=== PATIENT | male | born 1980 | race Caucasian/White ===

== ENCOUNTER 2016-08-17 22:03 | Emergency (ER) | payer OTHER ==
[2016-08-17 22:10] VITALS: BP 119/73
== END 2016-08-17 23:55 | disposition left against medical advice (07) ==
LOC: ED 22:03
DX: L02.413 Cutaneous abscess of right upper limb (principal); Z53.21 Procedure and treatment not carried out due to patient leaving prior to being seen by health care provider; Z88.5 Allergy status to narcotic agent
CPT/HCPCS: 99281

== ENCOUNTER 2023-04-03 20:00 | Inpatient (IN) ==
[2023-04-03] MEDS ORDERED: Vancomycin 1,250 MG in NS 0.9% 250 ml 250 ML IVPB ONE (20:11)
[2023-04-03] MEDS ORDERED: Cefepime 2 GM in Dextrose 2 GM/50 ML BAG IV ONE (20:11)
[2023-04-03] MEDS ORDERED: Lactated Ringers 1000 ml BAG 1,000 ML IV ONE (20:59)
[2023-04-03] MEDS ORDERED: Acetaminophen IV 1 GM/100ML 1,000 MG/100 ML BAG IV ONE (20:59)
[2023-04-03 21:46] LABS: ABS Basophils 0.1 10^3/uL (0.0-0.1); ABS Monocytes 0.8 10^3/uL (0.0-1.1); ABS Neutrophils 10.2 10^3/uL (1.5-7.6); Eosinophil % 0.3 %; Hematocrit 36.2 % (38-53); Hemoglobin 12.5 g/dL (13.2-16.3); Lymphocyte % 8.1 %; Mean Corpuscular Hemoglobin 32.6 pg (27-33); Mean Corpuscular Hgb Conc 34.5 g/dL (31-36); Mean Corpuscular Volume 94.5 fL (80-97); Mean Platelet Volume 8.5 fL (7.5-11.2); Platelet Count 182 10^3/uL (150-450); Red Blood Count 3.83 10^6/uL (4.06-5.63); Red Cell Distribution Width 13.3 % (12-17); White Blood Count 12.1 10^3/uL (3.6-10.2)
[2023-04-03 21:54] LABS: Albumin 4.4 g/dL (3.2-5.2); Calcium 9.1 mg/dL (8.6-10.3); Potassium 3.7 mmol/L (3.5-5.0); Total Bilirubin 0.5 mg/dL (0.2-1.0)
[2023-04-03 22:00] LABS: Albumin/Globulin Ratio 1.6 (1-3); C Reactive Protein 106.67 mg/L (<8.01); Creatinine, Serum 0.79 mg/dL (0.67-1.17); Globulin 2.8 g/dL (2-4); Total Protein 7.2 g/dL (6.4-8.9); eGFR CKD-EPI 115.2 (>60)
[2023-04-03 22:08] LABS: Urine Appearance Clear; Urine Bilirubin Negative (Negative); Urine Blood Negative (Negative); Urine Color Yellow; Urine Glucose Negative (Negative); Urine Ketones Negative (Negative); Urine Nitrite Negative (Negative); Urine Protein 2+(100 mg/dL) (Negative); Urine Specific Gravity 1.024 (1.002-1.030); Urine Urobilinogen Negative (Negative)
[2023-04-03] MEDS ORDERED: Iohexol 350 (CONTRAST) 500 ML MDV IV ONE (22:16)
[2023-04-03 22:42] LABS: Urine Bacteria Absent (Absent); Urine Red Blood Cell Trace(0-2/hpf) (Absent); Urine White Blood Cell Absent (Absent)
[2023-04-03] MEDS ORDERED: Morphine 2 MG/ML SYRINGE IV PRN ×2 (23:30→23:46)
[2023-04-03] MEDS ORDERED: Acetaminophen IV 1 GM/100ML 1,000 MG/100 ML BAG IV PRN (23:31)
[2023-04-03] MEDS ORDERED: Vancomycin per Pharmacy 1 EA NOTE FOLLOW UP SCH (23:45)
[2023-04-03] MEDS ORDERED: Zosyn per Pharmacy NOTE FOLLOW UP SCH (23:45)
[2023-04-04] MEDS ORDERED: ZOSYN 3.375 GM x ONE DOSE over 30 miuntes IV (00:15)
[2023-04-04] MEDS: Enoxaparin 40 MG/0.4 ML SYR SUBCUT SCH ×2 (03:44→20:26)
[2023-04-04] MEDS ORDERED: Lactated Ringers 1000 ml BAG 1,000 ML IV SCH (06:00)
[2023-04-04] MEDS: ZOSYN 3.375 GM Q8H per EXTENDED INFUSION IV SCH ×2 (06:14→18:38)
[2023-04-04 06:29] LABS: ABS Eosinophils 0.1 10^3/uL (0.0-0.5); ABS Lymphocytes 1.2 10^3/uL (1.0-4.8); ABS Monocytes 0.8 10^3/uL (0.0-1.1); ABS Nucleated RBC 0.01 10^3/ul; Eosinophil % 1.3 %; Hematocrit 32.6 % (38-53); Hemoglobin 11.3 g/dL (13.2-16.3); Lymphocyte % 12.8 %; Mean Corpuscular Hemoglobin 32.6 pg (27-33); Mean Corpuscular Hgb Conc 34.5 g/dL (31-36); Mean Corpuscular Volume 94.4 fL (80-97); Mean Platelet Volume 8.6 fL (7.5-11.2); Nucleated Red Blood Cells % 0.2 /100 WBC (0.0-0.4); Platelet Count 142 10^3/uL (150-450); Red Blood Count 3.45 10^6/uL (4.06-5.63); Red Cell Distribution Width 12.8 % (12-17); White Blood Count 9.2 10^3/uL (3.6-10.2)
[2023-04-04 06:49] LABS: Calcium 8.5 mg/dL (8.6-10.3); Creatinine, Serum 0.66 mg/dL (0.67-1.17); Magnesium 2.1 mg/dL (1.9-2.7); Potassium 3.3 mmol/L (3.5-5.0); eGFR CKD-EPI 121.6 (>60)
[2023-04-04] MEDS ORDERED: NS 0.9% 1000 ml BAG 1,000 ML IV ONE (07:32)
[2023-04-04] MEDS ORDERED: Morphine 10 MG/ML VIAL (1 ml) IV ONE (07:34)
[2023-04-04] MEDS ORDERED: NS 0.9% 1000 ml BAG 1,000 ML IV SCH (07:45)
[2023-04-04] MEDS ORDERED: HYDROmorphone 1 MG/1 ML SYRINGE IV PRN (09:44)
[2023-04-04] MEDS ORDERED: Acetaminophen IV 1 GM/100ML 1,000 MG/100 ML BAG IV SCH (10:00)
[2023-04-04] MEDS ORDERED: Iohexol 350 (CONTRAST) 500 ML MDV IV ONE (10:11)
[2023-04-04] MEDS ORDERED: HYDROmorphone 1 MG/1 ML SYRINGE IM ONE (12:44)
[2023-04-04] MEDS ORDERED: Vancomycin 1,250 MG in NS 0.9% 250 ml 250 ML IVPB SCH (17:00)
[2023-04-04] MEDS ORDERED: cefTRIAXone 2 gm/50 mL D5W 2 GM/50 ML BAG IV SCH (17:00)
[2023-04-04] MEDS: Vancomycin 1,250 MG in NS 0.9% 250 ml 250 ML IVPB SCH ×2 (18:40→21:00)
[2023-04-04] MEDS: cefTRIAXone 2 gm/50 mL D5W 2 GM/50 ML BAG IV SCH (20:13)
[2023-04-04] MEDS: HYDROmorphone 1 MG/1 ML SYRINGE IV PRN (22:08)
[2023-04-05 05:14] LABS: ABS Basophils 0.1 10^3/uL (0.0-0.1); ABS Eosinophils 0.1 10^3/uL (0.0-0.5); ABS Lymphocytes 1.2 10^3/uL (1.0-4.8); ABS Monocytes 0.8 10^3/uL (0.0-1.1); ABS Neutrophils 8.8 10^3/uL (1.5-7.6); Hematocrit 33.2 % (38-53); Hemoglobin 11.5 g/dL (13.2-16.3); Lymphocyte % 10.6 %; Mean Corpuscular Hemoglobin 32.8 pg (27-33); Mean Corpuscular Hgb Conc 34.8 g/dL (31-36); Mean Corpuscular Volume 94.4 fL (80-97); Mean Platelet Volume 8.1 fL (7.5-11.2); Platelet Count 177 10^3/uL (150-450); Red Blood Count 3.51 10^6/uL (4.06-5.63); Red Cell Distribution Width 13.1 % (12-17); White Blood Count 10.9 10^3/uL (3.6-10.2)
[2023-04-05] MEDS: HYDROmorphone 1 MG/1 ML SYRINGE IV PRN ×5 (05:14→21:37)
[2023-04-05] MEDS: Vancomycin 1,250 MG in NS 0.9% 250 ml 250 ML IVPB SCH ×3 (05:18→20:52)
[2023-04-05 05:29] LABS: Calcium 8.6 mg/dL (8.6-10.3); Creatinine, Serum 0.54 mg/dL (0.67-1.17); Magnesium 2.1 mg/dL (1.9-2.7); Potassium 3.8 mmol/L (3.5-5.0); eGFR CKD-EPI 129.2 (>60)
[2023-04-05] MEDS: cefTRIAXone 2 gm/50 mL D5W 2 GM/50 ML BAG IV SCH (17:31)
[2023-04-05] MEDS: Lactated Ringers 1000 ml BAG 1,000 ML IV SCH (18:16)
[2023-04-05] MEDS: Enoxaparin 40 MG/0.4 ML SYR SUBCUT SCH (20:52)
[2023-04-06] MEDS: HYDROmorphone 1 MG/1 ML SYRINGE IV PRN ×5 (04:26→21:03)
[2023-04-06] MEDS ORDERED: Vancomycin Trough Check NOTE FOLLOW UP ONE (04:30)
[2023-04-06 04:58] LABS: ABS Basophils 0.1 10^3/uL (0.0-0.1); ABS Eosinophils 0.2 10^3/uL (0.0-0.5); ABS Lymphocytes 1.1 10^3/uL (1.0-4.8); ABS Monocytes 0.7 10^3/uL (0.0-1.1); ABS Neutrophils 6.6 10^3/uL (1.5-7.6); ABS Nucleated RBC 0.02 10^3/ul; Eosinophil % 2.2 %; Hematocrit 34.5 % (38-53); Hemoglobin 11.9 g/dL (13.2-16.3); Lymphocyte % 12.8 %; Mean Corpuscular Hemoglobin 32.2 pg (27-33); Mean Corpuscular Hgb Conc 34.4 g/dL (31-36); Mean Corpuscular Volume 93.6 fL (80-97); Mean Platelet Volume 8.3 fL (7.5-11.2); Nucleated Red Blood Cells % 0.2 /100 WBC (0.0-0.4); Platelet Count 208 10^3/uL (150-450); Red Blood Count 3.69 10^6/uL (4.06-5.63); Red Cell Distribution Width 12.8 % (12-17); White Blood Count 8.6 10^3/uL (3.6-10.2)
[2023-04-06 05:13] LABS: C Reactive Protein 68.13 mg/L (<8.01); Calcium 8.7 mg/dL (8.6-10.3); Creatinine, Serum 0.49 mg/dL (0.67-1.17); Potassium 3.7 mmol/L (3.5-5.0)
[2023-04-06 05:30] LABS: Vancomycin Trough 10.4 mcg/mL
[2023-04-06] MEDS: Vancomycin 1,250 MG in NS 0.9% 250 ml 250 ML IVPB SCH (05:40)
[2023-04-06] MEDS ORDERED: Potassium Chlor 10 meq TAB PO ONE (06:44)
[2023-04-06] MEDS: Lactated Ringers 1000 ml BAG 1,000 ML IV SCH ×2 (08:59→23:02)
[2023-04-06] MEDS: Vancomycin 1000 MG in NS 0.9% 250 ML IVPB SCH ×2 (13:20→18:07)
[2023-04-06] MEDS: cefTRIAXone 2 gm/50 mL D5W 2 GM/50 ML BAG IV SCH (17:14)
[2023-04-06] MEDS: Enoxaparin 40 MG/0.4 ML SYR SUBCUT SCH (21:12)
[2023-04-07] MEDS: Vancomycin 1000 MG in NS 0.9% 250 ML IVPB SCH ×4 (00:15→16:14)
[2023-04-07] MEDS: HYDROmorphone 1 MG/1 ML SYRINGE IV PRN ×4 (01:05→13:06)
[2023-04-07 05:39] LABS: ABS Basophils 0.1 10^3/uL (0.0-0.1); ABS Eosinophils 0.2 10^3/uL (0.0-0.5); ABS Lymphocytes 1.3 10^3/uL (1.0-4.8); ABS Monocytes 0.6 10^3/uL (0.0-1.1); ABS Neutrophils 5.2 10^3/uL (1.5-7.6); Eosinophil % 2.9 %; Hematocrit 32.8 % (38-53); Hemoglobin 11.5 g/dL (13.2-16.3); Lymphocyte % 17.4 %; Mean Corpuscular Hemoglobin 32.8 pg (27-33); Mean Corpuscular Hgb Conc 35.1 g/dL (31-36); Mean Corpuscular Volume 93.5 fL (80-97); Mean Platelet Volume 8.2 fL (7.5-11.2); Platelet Count 218 10^3/uL (150-450); Red Blood Count 3.51 10^6/uL (4.06-5.63); Red Cell Distribution Width 12.9 % (12-17); White Blood Count 7.3 10^3/uL (3.6-10.2)
[2023-04-07 06:01] LABS: Calcium 8.4 mg/dL (8.6-10.3); Creatinine, Serum 0.67 mg/dL (0.67-1.17); Magnesium 1.8 mg/dL (1.9-2.7); Potassium 3.7 mmol/L (3.5-5.0)
[2023-04-07] MEDS ORDERED: Magnesium Sulfate 2 gm BAG 2 GM/50 ML BAG IVPB ONE (07:57)
[2023-04-07] MEDS ORDERED: Vancomycin Trough Check NOTE FOLLOW UP ONE (11:30)
[2023-04-07] MEDS: cefTRIAXone 2 gm/50 mL D5W 2 GM/50 ML BAG IV SCH (17:04)
[2023-04-07] MEDS ORDERED: Naloxone Nasal Spray 4 MG/0.1 ML NASAL.SPR INTRANASAL PRN (18:19)
[2023-04-07] MEDS: Enoxaparin 40 MG/0.4 ML SYR SUBCUT SCH (20:13)
[2023-04-08] MEDS: Vancomycin 1000 MG in NS 0.9% 250 ML IVPB SCH ×4 (00:12→18:02)
[2023-04-08 06:03] LABS: Hematocrit 31.2 % (38-53); Hemoglobin 10.8 g/dL (13.2-16.3); Mean Corpuscular Hemoglobin 32.6 pg (27-33); Mean Corpuscular Hgb Conc 34.6 g/dL (31-36); Platelet Count 227 10^3/uL (150-450); Red Blood Count 3.32 10^6/uL (4.06-5.63); Red Cell Distribution Width 13.2 % (12-17); White Blood Count 5.9 10^3/uL (3.6-10.2)
[2023-04-08 06:23] LABS: Calcium 8.5 mg/dL (8.6-10.3); Creatinine, Serum 0.64 mg/dL (0.67-1.17); Potassium 4.2 mmol/L (3.5-5.0); eGFR CKD-EPI 122.7 (>60)
[2023-04-08] MEDS: HYDROmorphone 1 MG/1 ML SYRINGE IV PRN ×3 (08:50→19:49)
[2023-04-08] MEDS: Nicotine PATCH 21 MG/24 HR PATCH TRANSDERM SCH (09:08)
[2023-04-08] MEDS: Nicotine GUM 2MG FRUIT FLAVOR PO PRN ×2 (11:50→21:48)
[2023-04-08] MEDS: Enoxaparin 40 MG/0.4 ML SYR SUBCUT SCH (21:48)
[2023-04-09] MEDS: HYDROmorphone 1 MG/1 ML SYRINGE IV PRN ×3 (00:35→09:59)
[2023-04-09] MEDS: Vancomycin 1000 MG in NS 0.9% 250 ML IVPB SCH ×2 (00:38→06:13)
[2023-04-09] MEDS ORDERED: Phenylephrine 40 mcg/mL 10mL (400mcg) SYRINGE ONE (07:18)
[2023-04-09] MEDS ORDERED: Propofol 10 MG/ML 20 ML BTL ONE (07:18)
[2023-04-09] MEDS ORDERED: Lidocaine 2% PF 5 ML VIAL ONE (07:18)
[2023-04-09] MEDS ORDERED: Midazolam 2 mg/2 ml VIAL 1 mg/ml 2 ml VIAL (2 mg) ONE (07:23)
[2023-04-09] MEDS: Nicotine PATCH 21 MG/24 HR PATCH TRANSDERM SCH (09:59)
[2023-04-09 10:20] VITALS: BP 107/64
[2023-04-10] MEDS ORDERED: Vancomycin Trough Check NOTE FOLLOW UP ONE (11:30)
== END 2023-04-09 15:50 | disposition home or self-care (01) | DRG 603 ==
LOC: ED 20:00 → EDHOLD 22:59 → INTOOBSV 22:59 → SUATTDRO 22:59 → MED 04-04 16:58 → SUATTDRO 04-05 14:14 → MED 04-07 17:02
PROVIDERS: ADMIT Student in an Organized Health Care Education/Training Program; ATTEND Internal Medicine
PROC: O.CATEE (2023-04-09 10:30)